=== PATIENT | male | born 1970 | race African-American/Black ===

== ENCOUNTER 2017-02-10 06:18 | Emergency (ER) | payer MEDICAID ==
[~2017-02-10] VITALS: Ht 182.9 cm; Wt 100.0 kg
[2017-02-10] MEDS ORDERED: BACITRACIN ZINC OINT UDPKT TOP ONE (08:45)
[2017-02-10] MEDS ORDERED: KETOROLAC 60MG/2ML VIAL IM ONE (08:45)
[2017-02-10] MEDS ORDERED: HYDROCODONE/ACETAMINOPHEN 5/325MG TABLET PO ONE (11:45)
[2017-02-10 11:55] VITALS: BP 135/68
== END 2017-02-10 12:23 | disposition home or self-care (01) ==
LOC: ER 06:18
DX: S80.212A Abrasion, left knee, initial encounter (principal); S80.211A Abrasion, right knee, initial encounter; M25.512 Pain in left shoulder; V49.9XXA Car occupant (driver) (passenger) injured in unspecified traffic accident, initial encounter; Y93.89 Activity, other specified; Y92.89 Other specified places as the place of occurrence of the external cause; Y99.8 Other external cause status
CPT/HCPCS: 73030; 73562; 96372; 99284; J1885; X7700; Z7610